=== PATIENT | male | born 1985 | race Caucasian/White ===

== ENCOUNTER 2021-09-19 19:18 | Emergency (ER) | payer BC ==
[~2021-09-19] VITALS: Ht 180.3 cm; Wt 88.6 kg
[2021-09-20] MEDS ORDERED: ACETAMINOPHEN 500 MG TAB PO ONE (00:45)
[2021-09-20] MEDS ORDERED: ONDANSETRON 4 MG ORAL DISINTEGRATING TAB PO ONE (00:45)
--- NOTE | 2021-09-20 03:11 | REPVR ---
PROCEDURE INFORMATION: Exam: US Duplex Left Lower Extremity Veins, Limited Exam date and time: 09/20/2021 2:22 AM Age: 36 years old Clinical indication: Pain; Leg, lower; Left; Additional info: Left calf pain TECHNIQUE: Imaging protocol: Real-time Duplex ultrasound of the Left Lower Extremity with 2-D silverio scale, color Doppler flow and spectral waveform analysis with image documentation. Limited exam focused on the left lower extremity veins. COMPARISON: No relevant prior studies available. FINDINGS: Left deep veins: Unremarkable. The left common femoral, femoral, popliteal, posterior tibial, and peroneal veins are patent without thrombus. Normal compressibility, augmentation response, and Doppler waveforms. Left superficial veins: There is a superficial vein thrombosis in the left mid calf in a region of erythema, which is compatible with a superficial thrombophlebitis. Right common femoral vein: The right common femoral vein is patent and demonstrates normal compressibility, normal color Doppler flow, and a normal spectral waveform response to augmentation. IMPRESSION: 1. No deep vein thrombosis in the veins imaged in the left lower extremity. 2. Superficial thrombophlebitis in the left mid calf. Electronically signed by: Oliver Montero On 09/20/2021 03:10:16 AM
[2021-09-20] MEDS ORDERED: NAPR-837 PO (03:38)
[2021-09-20] MEDS ORDERED: NAPROXEN 250 MG TAB PO ONE (03:40)
[2021-09-20 04:27] VITALS: BP 127/83
== END 2021-09-20 04:28 | disposition home or self-care (01) ==
LOC: M ED 19:18
DX: I80.02 Phlebitis and thrombophlebitis of superficial vessels of left lower extremity (principal)
CPT/HCPCS: 93971; 99283; Q0162

== ENCOUNTER → 2023-08-20 | Outpatient (CLI) | payer BC ==
[~2023-08-20] MED LIST: NAPR-837 PO
[2023-08-20 13:40] LABS: BASO # 0.1 10^3/uL (0.0-0.2); BASO % 0.7 % (0.0-1.0); EOS # 0.2 10^3/uL (0.0-0.5); HEMATOCRIT 49.1 % (42.0-52.0); LYMPH # 1.9 10^3/uL (1.5-5.0); LYMPH % 25.4 % (24.0-44.0); MEAN CORPUSCULAR HEMOGLOBIN 30.7 pg (27.0-33.0); MEAN CORPUSCULAR HGB CONC 32.6 g/dl (32.0-36.5); MEAN CORPUSCULAR VOLUME 94.2 fl (80.0-96.0); MONO # 0.5 10^3/uL (0.0-0.8); MONO % 6.4 % (2.0-8.0); NEUTROPHILS # 4.9 10^3/uL (1.5-8.5); NEUTROPHILS % 65.2 % (36.0-66.0); PLATELET COUNT, AUTOMATED 250 10^3/uL (150-450); RED BLOOD COUNT 5.21 10^6/uL (4.30-6.10); WHITE BLOOD COUNT 7.5 10^3/uL (4.0-10.0)
[2023-08-20 14:11] LABS: ALBUMIN 4.5 G/DL (3.2-5.2); ALKALINE PHOSPHATASE 43 U/L (46-116); ALT/SGPT 46 U/L (7.0-40); AST/SGOT 48 U/L (<34); BILIRUBIN,TOTAL 0.9 MG/DL (0.3-1.2); BLOOD UREA NITROGEN 12 MG/DL (9-23); CALCIUM LEVEL 9.7 MG/DL (8.5-10.1); CARBON DIOXIDE LEVEL 31 MMOL/L (20-31); CHLORIDE LEVEL 104 MMOL/L (98-107); CHOLESTEROL LEVEL 229 MG/DL (<200); CHOLESTEROL RISK RATIO 4.86 (<5); CREATININE FOR GFR 0.81 MG/DL (0.70-1.30); GLOMERULAR FILTRATION RATE > 60.0 (>60); GLUCOSE, FASTING 99 MG/DL (60-100); HDL CHOLESTEROL 47.1 MG/DL (>40); LDL CHOLESTEROL 163.3 MG/DL (<100); NON-HDL-C 181.9 MG/DL; POTASSIUM SERUM 4.5 MMOL/L (3.5-5.1); SODIUM LEVEL 141 MMOL/L (136-145); TOTAL PROTEIN 7.6 G/DL (5.7-8.2); TRIGLYCERIDES LEVEL 93 MG/DL (<150)
[2023-08-20 14:12] LABS: FREE T4 1.08 NG/DL (0.89-1.76)
[2023-08-20 14:13] LABS: THYROID STIMULATING HORMONE 1.623 uIU/ML (0.55-4.78); TOTAL 25(OH) VITAMIN D 27.2 NG/ML (20.0-100.0); VITAMIN B12 LEVEL 642 PG/ML (211-911)
== END ==
LOC: M PLALAB 11:22
PROVIDERS: ATTEND Student in an Organized Health Care Education/Training Program
DX: Z76.89 Persons encountering health services in other specified circumstances (principal); R20.2 Paresthesia of skin

== ENCOUNTER → 2024-03-11 | Outpatient (CLI) | payer BC ==
[2024-03-11 10:28] LABS: BASO # 0.1 10^3/uL (0.0-0.2); BASO % 0.6 % (0.0-1.0); EOS # 0.2 10^3/uL (0.0-0.5); EOS % 2.8 % (0.0-3.0); HEMATOCRIT 46.1 % (42.0-52.0); LYMPH # 2.1 10^3/uL (1.5-5.0); LYMPH % 25.8 % (24.0-44.0); MEAN CORPUSCULAR HEMOGLOBIN 30.2 pg (27.0-33.0); MEAN CORPUSCULAR HGB CONC 32.5 g/dl (32.0-36.5); MEAN CORPUSCULAR VOLUME 92.9 fl (80.0-96.0); MONO # 0.6 10^3/uL (0.0-0.8); MONO % 7.6 % (2.0-8.0); NEUTROPHILS # 5.2 10^3/uL (1.5-8.5); PLATELET COUNT, AUTOMATED 229 10^3/uL (150-450); RED BLOOD COUNT 4.96 10^6/uL (4.30-6.10); WHITE BLOOD COUNT 8.2 10^3/uL (4.0-10.0)
[2024-03-11 11:04] LABS: CHOLESTEROL RISK RATIO 5.48 (<5); FREE T4 0.98 NG/DL (0.89-1.76); HDL CHOLESTEROL 37.2 MG/DL (>40); LDL CHOLESTEROL 151.8 MG/DL (<100); NON-HDL-C 166.8 MG/DL
[2024-03-11 11:05] LABS: THYROID STIMULATING HORMONE 1.586 uIU/ML (0.55-4.78)
[2024-03-11 11:32] LABS: HEMOGLOBIN A1c 5.2 % (4.0-6.0)
== END ==
LOC: M PLALAB 09:00
PROVIDERS: ATTEND Student in an Organized Health Care Education/Training Program
DX: F17.200 Nicotine dependence, unspecified, uncomplicated (principal)

== ENCOUNTER → 2024-08-20 | Outpatient (REF) | payer OTHER | LOC: M LAB REF 21:10 | PROVIDERS: ATTEND Physician Assistant | DX: J02.9 Acute pharyngitis, unspecified (principal) ==

== ENCOUNTER → 2025-05-07 | Outpatient (CLI) | payer OTHER | LOC: M PLAIMG 16:19 | DX: M54.6 Pain in thoracic spine (principal) ==